=== PATIENT | male | born 1970 | race Two or more races ===

== ENCOUNTER 2024-08-05 13:35 | Emergency (ER) | payer MEDICAID, SELFPAY ==
[2024-08-05 13:36] VITALS: BMI 25.0
--- NOTE | 2024-08-05 13:48 | EKG_ITS ---
[facility] Test Date: 2024-08-05 Pat Name: ANU PICKETT Department: Room: - Gender: Male [employer]: : 1970 Requested By: ED Temporary Provider Order Number: [id number] Reading MD: ED Temporary Provider Measurements Intervals [place] Rate: 99 P: 63 TX: 148 QRS: 1 QRSD: 105 T: 69 QT: 331 QTc: 425 Interpretive Statements SINUS RHYTHM No previous ECG available for comparison /[id number]/[email or web address]/[id number]
[2024-08-05 13:54] VITALS: BP 133/79; PULSE 99; RESP 18; TEMP 38.7; O2SAT 96
--- NOTE | 2024-08-05 14:00 | XR_ITS ---
Examination: PA lateral chest 2 views TECHNIQUE: Upright PA lateral chest 2 views Date and time: August 05, 2024 1410 hours INDICATIONS: Sternal chest pain radiating to the left arm beginning 2 days ago. FINDINGS: Normal heart size No lobar pneumonia. No pulmonary edema Mild osteopenia Suspicious for mild basilar bronchitis IMPRESSION: No pneumonia or pulmonary edema Suspicious for mild basilar bronchitis
--- NOTE | 2024-08-05 14:01 | PD.EDRME ---
Rapid Medical Screening Exam RME Arrival date/time: 08/05/24 13:35 54-year-old male with no known medical history presents to the emergency room with a chief complaint of 6 out of 10 sternal chest pain that radiates to the left side of his chest x 2 days I have greeted and performed a focused initial assessment of this patient. A comprehensive ED assessment and evaluation of the patient, analysis of all test results, and completion of the medical decision making process will be conducted by additional ED providers. Chief Complaint: Chest Pain Vital signs: Vital Signs Temperature 101.7 F H 08/05/24 13:54 Pulse Rate 99 08/05/24 13:54 Respiratory Rate 18 08/05/24 13:54 Blood Pressure 133/79 H 08/05/24 13:54 Pulse Oximetry (%) 96 08/05/24 13:54 Oxygen Delivery Method Room Air 08/05/24 13:54 Vital signs reviewed by provider: Yes
[2024-08-05 14:16] LABS: Basophils % (Auto) 0 % (0-2.5); Eosinophils % (Auto) 0 % (0-10); Hematocrit 39.1 % (41.0-53.0); Hemoglobin 13.7 g/dL (13.5-16.0); Immature Granulocytes % (Auto) 0 % (0-0); Immature Granulocytes Auto 0.02 Thou/mm3 (0.00-0.00); Lymphocytes # (Auto) 1.3 Thou/mm3 (1.0-4.8); Lymphocytes % (Auto) 21 % (10-50); Mean Corpuscular Hemoglobin 28.1 pg (25.0-35.0); Mean Corpuscular Volume 80 fL (80-100); Monocytes # (Auto) 0.5 Thou/mm3 (0.0-0.8); Monocytes % (Auto) 9 % (0-12); Neutrophils # (Auto) 4.1 Thou/mm3 (1.8-7.7); Neutrophils % (Auto) 70 % (37-80); Nucleated Red Blood Cell % 0 /100 WBC (0); Platelet Count 190 Thou/mm3 (140-440); RDW Standard Deviation 39.4 fL (35.1-43.9); Red Blood Count 4.87 Miln/mm3 (4.50-5.90); White Blood Count 5.9 Thou/mm3 (3.8-10.6)
[2024-08-05] MEDS: ACETAMINOPHEN 500 MG TABLET 1000 MG PO (14:29)
[2024-08-05 14:30] LABS: Prothrombin Time 11.3 Seconds (9.0-12.2)
[2024-08-05 14:33] LABS: B-Type Natriuretic Peptide < 20 pg/mL (0-100)
[2024-08-05 14:35] LABS: Alanine Aminotransferase 26 U/L (10-49); Albumin, Serum 4.5 gm/dL (3.5-5.0); Alkaline Phosphatase 72 U/L (46-116); Anion Gap 11 (7-16); Aspartate Amino Transferase 43 U/L (0-34); BUN/Creatinine Ratio 6 Ratio (12-20); Bilirubin,Total 0.4 mg/dL (0.3-1.2); Blood Urea Nitrogen 7 mg/dL (9-23); Calcium 7.9 mg/dL (8.3-10.6); Calcium (Corrected) 7.9 mg/dL (8.5-10.1); Carbon Dioxide 27.8 mMol/L (20.0-31.0); Chloride 99 mMol/L (98-107); Creatinine (Component) 1.1 mg/dL (0.6-1.3); Estimated Creatinine Clearance 70.9 mL/min (>60); Globulin 2.3 gm/dL (2.3-3.5); Glucose 110 mg/dL (74-106); Magnesium 1.6 mg/dL (1.6-2.6); Osmolality,Calculated 274 (275-295); Potassium 3.2 mMol/L (3.4-5.1); Sodium 138 mMol/L (136-145); Total Protein 6.8 gm/dL (5.7-8.2); Troponin I < 0.002 ng/mL (0.0-0.045); eGFR > 60 See Note
--- NOTE | 2024-08-05 19:21 | PC.NURSE ---
Pt was called back to be revitaled ad did not answer when name was called and was not found outside.
--- NOTE | 2024-08-05 19:57 | PC.NURSE ---
Pt did not answer when name was called and was not found outside.
== END 2024-08-05 19:58 | disposition left against medical advice (07) ==
PROVIDERS: Nurse Practitioner Family; Emergency Provider Emergency Medicine; PCP Family Medicine
DX: R07.2 Precordial pain (principal); Z53.29 Procedure and treatment not carried out because of patient's decision for other reasons
CPT/HCPCS: 36415; 71046; 80053; 80307; 81001; 83735; 83880; 84484; 85025; 85610; 87400; 87811; 93005; 99281; A9270